=== PATIENT | male | born 1960 | race Caucasian/White ===

== ENCOUNTER 2024-06-30 14:32 | Outpatient (CLI) | payer BC, SELFPAY ==
--- NOTE | ~2024-06-30 | MR_ITS ---
MRI of the left knee Clinical history: Pain Technique: Coronal proton density and proton density-weighted images, sagittal proton-density and T2 fat-sat images, and axial proton-density fat-saturated images were acquired. Findings: Anterior and posterior cruciate ligaments are intact. Medial collateral ligament and the la teral collateral ligament complex are intact. Popliteus tendon is intact. There is an oblique tear of the posterior horn of the medial meniscus extending into the body segment . Lateral meniscus is intact. Articular cartilage is well preserved along the patella and in the medial and lateral compartment. 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 Extensor mechanism is intact. No joint effusion or Carlos's cyst. Impression: Oblique tear of the posterior horn of the medial meniscus likely extending into the body segment. 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 Reviewed, dictated and finalized at [facility]. Impression: Oblique tear of the posterior horn of the medial meniscus likely extending into the body segment. Moderate to high-grade chondromalacia of the central aspect of the femoral troc hlea.
== END 2024-06-30 14:33 | disposition home or self-care (01) ==
LOC: MICIMG 14:35
PROVIDERS: PCP Physical Medicine & Rehabilitation; Visit Provider Physical Medicine & Rehabilitation
DX: S83.242A Other tear of medial meniscus, current injury, left knee, initial encounter (principal); M94.262 Chondromalacia, left knee; R26.89 Other abnormalities of gait and mobility; X58.XXXA Exposure to other specified factors, initial encounter
CPT/HCPCS: 73721

== ENCOUNTER 2024-12-19 01:33 | Day surgery (SDC) | payer BC, SELFPAY ==
[2024-12-10 12:48] VITALS: BMI 27.8
[2024-12-19 06:46] VITALS: BP 130/81; PULSE 71; RESP 18; TEMP 36.1; O2SAT 94; BMI 29.1
[2024-12-19] MEDS: LACTATED RINGERS 1,000 ML 150 ML IV CONT (06:56)
--- NOTE | 2024-12-19 07:09 | P.PNAN_ITS ---
Anes - Initial Pre Proc Eval Procedure: Operation Date: 12/19/24 08:00 Proposed Procedures p Screening Colonoscopy - Thomas Finch MD Date/Time: 12/19/24 07:09 Surgeon: Thomas Finch MD Pre Op Diagnosis: Screening Patient Data Age: 64 Gender: M Height: 1.8 m Weight: 94.7 kg Last Vital Signs Temp 36.1 C L 12/19/24 06:46 Pulse 71 12/19/24 06:46 Resp 18 12/19/24 06:46 BP 130/81 12/19/24 06:46 Pulse Ox 94 12/19/24 06:46 O2 Del Method Room Air 12/19/24 06:46 Allergies Allergy/AdvReac Type Severity Reaction Status Date / Time No Known Drug Allergies Allergy Unknown Other Verified 12/19/24 06:45 Home Medications ?Medication ?Instructions ?Recorded ?Confirmed ?Type atorvastatin 20 mg tablet 20 mg PO DAILY 01/13/1912/10 History Patient hx anesthesia problems: none Family hx anesthesia problems: none Results Review: All pre-operative results and documents have been reviewed as part of the pre- operative evaluation. [facility] Past Medical History Medical History History of nephrolithotomy with removal of calculi Kidney stones HLD (hyperlipidemia) Cataracts, bilateral Surgical History Surgical History History of lithotripsy Hx of cataract surgery Social History Social History Smoking status: Never smoker Alcohol intake: current Substance use: never Living arrangements: with family Gender identity (if verbalized by the patient): Male Anes - Eval Final PreProcedure Day of Procedure 12/19/24 07:09 Patient weight: normal Heart: regular rate and rhythm Lungs: clear to auscultation Airway: Mallampati scale class II Neurological: alert and oriented Last oral intake: >/= 8 hours ASA classification: II Emergent: no Anesthetic plan: proceed Anesthesia type and monitoring: general GIVS and standard monitoring Results Review: All pre-operative results and documents have been reviewed as part of the pre- operative evaluation. Informed Consent: The patient's anesthetic plan and its attendant risks and benefits were discussed with the patient/family/POA. Questions were solicited and answers provided to the satisfaction of the patient/family/POA.
--- NOTE | 2024-12-19 07:54 | PM.HPGS ---
History of Present Illness History of Present Illness Consent: Risks, benefits, and alternatives have been discussed and questions answered. Patient agrees to proceed with procedure. Chief complaint: Screening Narrative: Scout Salcedo is a 64 year old male with last screening colonoscopy 15 years ago Review of Systems Review of Systems: All systems reviewed & are unremarkable except as noted in HPI and below PMFSH Past Medical History Medical History (Updated 12/19/24 @ 07:54 by Thomas Finch MD) Colon cancer screening History of nephrolithotomy with removal of calculi Kidney stones HLD (hyperlipidemia) Cataracts, bilateral Surgical History Surgical History History of lithotripsy Hx of cataract surgery Social History Social History Smoking status: Never smoker Alcohol intake: current Substance use: never Living arrangements: with family Gender identity (if verbalized by the patient): Male Meds Home Medications and Allergies Home Medications ?Medication ?Instructions ?Recorded ?Confirmed ?Type atorvastatin 20 mg tablet 20 mg PO DAILY 01/13/19 12/19/24 History Allergies Allergy/AdvReac Type Severity Reaction Status Date / Time No Known Drug Allergies Allergy Unknown Other Verified 12/19/24 06:45 Vital Signs Vital Signs - 24 hr 12/19/24 06:46 Temperature 97 F L Pulse Rate 71 Respiratory Rate 18 Blood Pressure 130/81 Pulse Oximetry 94 Oxygen Delivery Room Air Exam Const: General: comfortable and no acute distress HENMT: Face/Nose/Sinus: Normal nares present Eyes: General: appearance normal, both eyes and all related structures Neck: Neck: no JVD Resp: Auscultation: clear to auscultation bilaterally Cardio: Rate: regular rate Rhythm: regular rhythm GI: Inspection: non-distended GI Palp: Yes Soft to palpation Skin: General skin exam: normal color Extrem: General: normal to inspection Psych: Mental Status: mental status grossly normal Assessment and Plan Assessment and plan (1) Colon cancer screening: Code(s): Z12.11 - Encounter for screening for malignant neoplasm of colon Status: Acute Assessment and Plan: colonoscopy
[2024-12-19 08:09] VITALS: BP 113/68; PULSE 56; RESP 22; O2SAT 96
[2024-12-19 08:19] VITALS: BP 114/59; PULSE 47; RESP 19; O2SAT 99
[2024-12-19 08:29] VITALS: BP 130/70; PULSE 50; RESP 19; O2SAT 100
== END 2024-12-19 08:44 | disposition home or self-care (01) ==
PROVIDERS: PCP Internal Medicine; Referring Provider Internal Medicine; Visit Provider Internal Medicine Gastroenterology
PROC: 0DJD8ZZ Inspection of Lower Intestinal Tract, Via Natural or Artificial Opening Endoscopic (ICD-10-PCS; CPT 45378; principal; 2024-12-19 08:00)
DX: Z12.11 Encounter for screening for malignant neoplasm of colon (principal); E78.5 Hyperlipidemia, unspecified; Z98.890 Other specified postprocedural states; Z87.442 Personal history of urinary calculi
CPT/HCPCS: 45378; J2704; J7120